=== PATIENT | male | born 1945 | race Caucasian/White ===

== ENCOUNTER 2018-02-14 14:09 | Inpatient (IN) | payer MEDICARE, OTHER ==
[~2018-02-14] VITALS: Ht 182.9 cm; Wt 110.9 kg
[~2018-02-14 14:09] MED LIST: AMLO5TAB2 PO; ARMO150T4 PO; CARI350T14 PO; CARV12.52 PO; CLOT15CR4; DOXY100T PO; GABA600T2 PO; HYDR-3240 PO; LISI-170 PO; LOVA10TA PO; METF850T2 PO; OXYC30TA66 PO; PROM25SU35 PR; RIVA15TA PO
[2018-02-14] MEDS ORDERED: SODIUM CHLORIDE FLUSH 10ML SYR IVF ONE (14:30)
[2018-02-14] MEDS ORDERED: ASPIRIN 81 MG TABLET CHEW PO ONE (14:30)
[2018-02-14 14:49] LABS: BASOPHILS # (AUTO) 0.04 x10^3/uL (0-0.1); BASOPHILS % (AUTO) 0 % (0-1); EOSINOPHILS # (AUTO) 0.19 x10^3/uL (0-0.4); EOSINOPHILS % (AUTO) 2 % (1-7); LYMPHOCYTES # (AUTO) 1.66 x10^3/uL (1-3.4); LYMPHOCYTES % (AUTO) 14 % (22-44); MD NO; MEAN CORPUSCULAR HEMOGLOBIN 28.9 pg (27.5-34.5); MEAN CORPUSCULAR HGB CONC 32.6 g/dL (33.2-36.2); MEAN CORPUSCULAR VOLUME 88.7 fL (81-97); MEAN PLATELET VOLUME 9.3 fL (7.4-10.4); MONOCYTES # (AUTO) 0.66 x10^3/uL (0.2-0.8); MONOCYTES % (AUTO) 6 % (2-9); NEUTROPHILS % (AUTO) 78 % (42-75); PLATELET COUNT 270 x10^3/uL (130-400); RED BLOOD COUNT 4.97 x10^6/uL (4.38-5.82); RED CELL DISTRIBUTION WIDTH 14.5 % (9.4-14.8)
[2018-02-14 15:03] LABS: ALBUMIN 3.4 g/dL (3.4-5.0); ANION GAP 12 mmol/L (5-15); CALCIUM 8.5 mg/dL (8.5-10.1); CHLORIDE 93 mmol/L (98-107); CREATININE 1.84 mg/dL (0.7-1.3)
[2018-02-14 15:07] LABS: TROPONIN I < 0.015 ng/mL (0.000-0.045)
[2018-02-14] MEDS ORDERED: ASPIRIN 81 MG TABLET CHEW ONE (15:19)
[2018-02-14] MEDS ORDERED: INSULIN REGULAR 100 UNITS/ML, 3ML VIAL SQ-INSULIN ONE (15:30)
[2018-02-14] MEDS ORDERED: METO10TA2 PO (16:59)
[2018-02-14] MEDS ORDERED: GLIP5TAB10 PO (16:59)
[2018-02-14] MEDS ORDERED: AMLO5TAB2 PO (16:59)
[2018-02-14] MEDS ORDERED: GABA-827 PO (16:59)
[2018-02-14] MEDS ORDERED: OMEP-110 PO (16:59)
[2018-02-14] MEDS ORDERED: LOSA100T6 PO (16:59)
[2018-02-14] MEDS ORDERED: HYDR25TA6 PO (16:59)
[2018-02-14] MEDS ORDERED: INSU100V8 SQ (16:59)
[2018-02-14] MEDS ORDERED: ATOR20TA9 PO (16:59)
[2018-02-14] MEDS ORDERED: INSU100I28 SQ (17:01)
[2018-02-14] MEDS ORDERED: MORPHINE SULFATE 4 MG/ML, 1ML IVPush PRN (17:30)
[2018-02-14] MEDS ORDERED: morphine SULFATE 10 MG/ML, 1ML IVPush PRN (18:00)
[2018-02-14] MEDS ORDERED: hydrALAzine 20 MG/ML, 1ML IVPush PRN (18:00)
[2018-02-14] MEDS ORDERED: HYDROcodone/APAP 5/325 TABLET PO PRN (18:00)
[2018-02-14] MEDS ORDERED: ACETAMINOPHEN 325 MG TABLET PO PRN (18:00)
[2018-02-14] MEDS ORDERED: ONDANSETRON 2MG/ML, 2ML IVPush PRN (18:00)
[2018-02-14 18:03] VITALS: BP 149/72
[2018-02-14 18:16] LABS: FREE T4 (FREE THYROXINE) 1.39 ng/dL (0.76-1.46); THYROID STIMULATING HORMONE 2.02 mIU/L (0.358-3.740)
[2018-02-14] MEDS: GABAPENTIN 300 MG CAPSULE PO SCH ×2 (20:27→20:38)
[2018-02-14] MEDS: HEPARIN 5,000 UNITS/ML, 1ML SQ SCH (20:34)
[2018-02-14] MEDS: SODIUM CHLORIDE 0.9% 1,000 ML IV SCH (20:34)
[2018-02-14] MEDS: METOCLOPRAMIDE 10MG TABLET PO SCH (20:38)
[2018-02-14] MEDS: ATORVASTATIN 20 MG TABLET PO SCH (20:38)
[2018-02-14] MEDS: INSULIN LISPRO 100 UNITS/ML, PEN SQ-INSULIN SCH ×2 (20:40→21:38)
[2018-02-14] MEDS ORDERED: INSULIN GLARGINE 100 UNITS/ML, PEN SQ-INSULIN SCH (21:00)
[2018-02-14 21:48] LABS: MICROSCOPIC NOT IND
[2018-02-14 21:52] LABS: CULTURE INDICATED? NO
[2018-02-14 22:37] LABS: TROPONIN I 0.217 ng/mL (0.000-0.045)
[2018-02-15 02:09] VITALS: BP 122/75
[2018-02-15] MEDS: HEPARIN 5,000 UNITS/ML, 1ML SQ SCH ×3 (05:05→21:58)
[2018-02-15] MEDS: SODIUM CHLORIDE 0.9% 1,000 ML IV SCH ×2 (05:05→21:58)
[2018-02-15 05:18] LABS: ALBUMIN 2.7 g/dL (3.4-5.0); ANION GAP 8 mmol/L (5-15); CALCIUM 7.9 mg/dL (8.5-10.1); CHLORIDE 99 mmol/L (98-107)
[2018-02-15 05:25] LABS: ALANINE AMINOTRANSFERASE 29 U/L (12-78); ALKALINE PHOSPHATASE 115 U/L (45-117); BILIRUBIN,TOTAL 0.4 mg/dL (0.2-1.0); TOTAL PROTEIN 6.5 g/dL (6.4-8.2); TROPONIN I 0.179 ng/mL (0.000-0.045)
[2018-02-15 05:32] LABS: HEMOGLOBIN A1C 12.4 % (4.2-6.3)
[2018-02-15 05:44] LABS: BASOPHILS # (AUTO) 0.03 x10^3/uL (0-0.1); BASOPHILS % (AUTO) 0 % (0-1); EOSINOPHILS # (AUTO) 0.21 x10^3/uL (0-0.4); EOSINOPHILS % (AUTO) 2 % (1-7); LYMPHOCYTES # (AUTO) 2.04 x10^3/uL (1-3.4); LYMPHOCYTES % (AUTO) 22 % (22-44); MD NO; MEAN CORPUSCULAR HEMOGLOBIN 29.1 pg (27.5-34.5); MEAN CORPUSCULAR HGB CONC 32.6 g/dL (33.2-36.2); MEAN CORPUSCULAR VOLUME 89.3 fL (81-97); MEAN PLATELET VOLUME 9.7 fL (7.4-10.4); MONOCYTES # (AUTO) 0.77 x10^3/uL (0.2-0.8); MONOCYTES % (AUTO) 8 % (2-9); NEUTROPHILS % (AUTO) 67 % (42-75); PLATELET COUNT 221 x10^3/uL (130-400); RED BLOOD COUNT 4.15 x10^6/uL (4.38-5.82); RED CELL DISTRIBUTION WIDTH 14.1 % (9.4-14.8)
[2018-02-15 06:26] VITALS: BP 113/62
[2018-02-15] MEDS: METOCLOPRAMIDE 10MG TABLET PO SCH ×2 (08:35→21:58)
[2018-02-15] MEDS: METOPROLOL TARTRATE 50 MG TABLET PO SCH ×2 (08:35→16:45)
[2018-02-15] MEDS: INSULIN LISPRO 100 UNITS/ML, PEN SQ-INSULIN SCH ×3 (08:35→16:45)
[2018-02-15] MEDS: GABAPENTIN 300 MG CAPSULE PO SCH ×3 (08:36→21:58)
[2018-02-15] MEDS: LOSARTAN 50MG TABLET PO SCH (08:36)
[2018-02-15] MEDS: ASPIRIN 81 MG TABLET EC PO SCH (08:36)
[2018-02-15] MEDS: OMEPRAZOLE 20 MG CAPSULE.DR PO SCH (08:36)
[2018-02-15] MEDS: HYDROCHLOROTHIAZIDE 25 MG TABLET PO SCH (08:36)
[2018-02-15] MEDS ORDERED: INSULIN GLARGINE 100 UNITS/ML, PEN SQ-INSULIN SCH (09:00)
[2018-02-15] MEDS ORDERED: AMLODIPINE 5 MG TABLET PO SCH (09:00)
[2018-02-15 12:55] VITALS: BP 102/64
[2018-02-15] MEDS: INSULIN GLARGINE 100 UNITS/ML, PEN SQ-INSULIN SCH ×2 (17:41→22:18)
[2018-02-15 19:47] VITALS: BP 111/70
[2018-02-15] MEDS: ATORVASTATIN 20 MG TABLET PO SCH (21:58)
[2018-02-16 00:58] VITALS: BP 125/71
[2018-02-16 04:26] VITALS: BP 133/74
[2018-02-16] MEDS: HEPARIN 5,000 UNITS/ML, 1ML SQ SCH ×3 (04:32→23:50)
[2018-02-16] MEDS: ASPIRIN 81 MG TABLET EC PO SCH (04:32)
[2018-02-16] MEDS: METOPROLOL TARTRATE 50 MG TABLET PO SCH ×2 (04:32→16:58)
[2018-02-16 05:25] LABS: ANION GAP 6 mmol/L (5-15); CALCIUM 8.9 mg/dL (8.5-10.1); CHLORIDE 104 mmol/L (98-107)
[2018-02-16 05:26] LABS: CREATININE 1.23 mg/dL (0.7-1.3)
[2018-02-16 07:09] VITALS: BP 101/65
[2018-02-16] MEDS: GABAPENTIN 300 MG CAPSULE PO SCH ×3 (08:28→22:15)
[2018-02-16] MEDS: SODIUM CHLORIDE 0.9% 1,000 ML IV SCH ×2 (08:28→22:15)
[2018-02-16] MEDS: OMEPRAZOLE 20 MG CAPSULE.DR PO SCH (08:29)
[2018-02-16] MEDS: METOCLOPRAMIDE 10MG TABLET PO SCH ×2 (08:29→22:15)
[2018-02-16] MEDS: LOSARTAN 50MG TABLET PO SCH (08:29)
[2018-02-16] MEDS: HYDROCHLOROTHIAZIDE 25 MG TABLET PO SCH (08:29)
[2018-02-16] MEDS: INSULIN GLARGINE 100 UNITS/ML, PEN SQ-INSULIN SCH (08:30)
[2018-02-16] MEDS ORDERED: INSULIN LISPRO 100 UNITS/ML, PEN SQ-INSULIN ONE ×2 (11:30→16:30)
[2018-02-16 15:35] VITALS: BP 107/62
[2018-02-16 19:05] VITALS: BP 130/74
[2018-02-16] MEDS ORDERED: INSULIN GLARGINE 100 UNITS/ML, PEN SQ-INSULIN SCH (21:00)
[2018-02-16] MEDS: ATORVASTATIN 20 MG TABLET PO SCH (22:15)
[2018-02-17 01:35] VITALS: BP 124/73
[2018-02-17] MEDS: METOPROLOL TARTRATE 50 MG TABLET PO SCH (05:03)
[2018-02-17] MEDS: ASPIRIN 81 MG TABLET EC PO SCH (05:03)
[2018-02-17] MEDS: HEPARIN 5,000 UNITS/ML, 1ML SQ SCH ×2 (05:03→12:00)
[2018-02-17 05:07] VITALS: BP 106/63
[2018-02-17 07:39] VITALS: BP 109/64
[2018-02-17] MEDS: OMEPRAZOLE 20 MG CAPSULE.DR PO SCH (08:08)
[2018-02-17] MEDS: METOCLOPRAMIDE 10MG TABLET PO SCH (08:08)
[2018-02-17] MEDS: INSULIN GLARGINE 100 UNITS/ML, PEN SQ-INSULIN SCH (08:08)
[2018-02-17] MEDS: LOSARTAN 50MG TABLET PO SCH (08:08)
[2018-02-17] MEDS: HYDROCHLOROTHIAZIDE 25 MG TABLET PO SCH (08:08)
[2018-02-17] MEDS: GABAPENTIN 300 MG CAPSULE PO SCH ×2 (08:08→16:00)
[2018-02-17] MEDS: SODIUM CHLORIDE 0.9% 1,000 ML IV SCH (12:00)
[2018-02-17] MEDS ORDERED: GLIM4TAB PO (12:04)
[2018-02-17] MEDS ORDERED: LOSA50TA2 PO (12:04)
[2018-02-17] MEDS ORDERED: METO50TA82 PO (12:04)
[2018-02-17] MEDS ORDERED: ASPI-621 PO (12:04)
[2018-02-17] MEDS ORDERED: OMEP-110 PO (12:07)
[2018-02-17] MEDS ORDERED: INSU100I13 SQ-INSULIN ×2 (12:11)
[2018-02-17 14:22] VITALS: BP 113/66
== END 2018-02-17 17:44 | DRG 637 ==
LOC: ED 16:28 → EDIP 16:29 → ED 16:38 → 5SO 18:00
PROVIDERS: ADMIT Internal Medicine; ATTEND Internal Medicine
DX: E11.00 Type 2 diabetes mellitus with hyperosmolarity without nonketotic hyperglycemic-hyperosmolar coma (NKHHC) (principal); N17.0 Acute kidney failure with tubular necrosis; E43 Unspecified severe protein-calorie malnutrition; G20 Parkinson's disease; E11.40 Type 2 diabetes mellitus with diabetic neuropathy, unspecified; E11.65 Type 2 diabetes mellitus with hyperglycemia; E87.1 Hypo-osmolality and hyponatremia; K21.9 Gastro-esophageal reflux disease without esophagitis; E78.5 Hyperlipidemia, unspecified; I10 Essential (primary) hypertension; Z79.82 Long term (current) use of aspirin; Z80.0 Family history of malignant neoplasm of digestive organs; Z86.14 Personal history of Methicillin resistant Staphylococcus aureus infection; Z86.718 Personal history of other venous thrombosis and embolism; Z86.73 Personal history of transient ischemic attack (TIA), and cerebral infarction without residual deficits; Z68.33 Body mass index [BMI] 33.0-33.9, adult; I20.9 Angina pectoris, unspecified
CPT/HCPCS: 36415; 71046; 71250; 78582; 80048; 80053; 81003; 82040; 82962; 83036; 83735; 83880; 84100; 84439; 84443; 84484; 85025; 93005; 96372; 99285; J1644; A9540; A9558; C9898; J1815; J7030

== ENCOUNTER 2018-02-20 18:33 | Emergency (ER) | payer MEDICARE ==
[~2018-02-20 18:33] MED LIST changes: +ASPI-621 PO; +ATOR20TA9 PO; +GABA-827 PO; +GLIM4TAB PO; +GLIP5TAB10 PO; +HYDR25TA6 PO; +INSU100I13 SQ-INSULIN; +INSU100I28 SQ; +INSU100V8 SQ; +LOSA100T6 PO; +LOSA50TA2 PO; +METO10TA2 PO; +METO50TA82 PO; +OMEP-110 PO
[2018-02-20] MEDS ORDERED: GABA300C10 PO (22:06)
[2018-02-20] MEDS ORDERED: INSU100C SQ-INSULIN (22:06)
[2018-02-20] MEDS ORDERED: GLIM2TAB2 PO (22:06)
[2018-02-20] MEDS ORDERED: ONDA4TAB12 PO (22:32)
[2018-02-20] MEDS ORDERED: OMNIPAQUE 350 MG/ML, 100ML BOTTLE ONE (23:50)
[2018-02-22] MEDS ORDERED: CEFD300C37 PO (08:39)
[2018-02-24] MEDS ORDERED: CEFD300C37 PO (08:46)
[2018-02-24] MEDS ORDERED: GABA100C PO (08:46)
== END 2018-02-20 19:02 | disposition home or self-care (01) ==
LOC: ED 18:56
DX: Z02.9 Encounter for administrative examinations, unspecified (principal)
CPT/HCPCS: Q9967